=== PATIENT | male | born 1935 | race Caucasian/White ===

== ENCOUNTER 2018-12-31 13:53 | Inpatient (IN) ==
[2018-12-31 14:34] LABS: Basophils % 0.5 % (0.0-0.8); Eosinophils # 0.1 10*3/uL (0.0-0.87); Eosinophils % 1.9 % (0.00-10.9); Hematocrit 43.2 VOL% (42.0-52.0); Hemoglobin 14.8 GM/DL (14.0-18.0); Immature Granulocytes % 0.2 %; Immature Granulocytes Absolute 0.01 #; Lymphocytes # 1.6 10*3/uL (1.4-4.0); Lymphocytes % 25.6 % (21.2-54.2); Mean Corpuscular HGB Conc 34.3 GM/DL (32-36); Mean Corpuscular Volume 93.7 FL (87-102); Mean Platelet Volume 8.9 FL (9.6-12.0); Monocytes % 6.6 % (1.7-12.7); Neutrophils % 65.2 % (38.7-73.9); Platelet Count 232 T/CUMM (130-400); Red Blood Count 4.61 MC/CUMM (3.8-5.5); Red Cell Distribution Width 12.5 % (9.3-17.3); White Blood Count 6.4 T/CUMM (4-12)
[2018-12-31 15:00] LABS: Albumin 3.5 G/DL (3.4-5.0); Bilirubin,Total 0.6 MG/DL (0.2-1.0); Osmolality,Calculated 276.8 MOS/KG (273-304); Total Protein 8.3 G/DL (6.4-8.3)
[2018-12-31] MEDS ORDERED: ONDANSETRON 4 MG/2 ML VIAL IV PRN (16:22)
[2018-12-31] MEDS ORDERED: DEXTROSE 10% 250 ML BAG IV PRN (16:29)
[2018-12-31] MEDS ORDERED: GLUCAGON 1 MG VIAL IM PRN (16:29)
[2018-12-31] MEDS: INSULIN LISPRO 100 UNIT/ML SUBCUT SCH ×2 (18:10→21:30)
[2018-12-31] MEDS ORDERED: ZIPRASIDONE 20 MG/1 ML VIAL IM ONE (20:25)
[2018-12-31] MEDS: NICOTINE 21 MG/24 HR PATCH TRANSDERM SCH (21:28)
[2018-12-31] MEDS: DONEPEZIL 5 MG TABLET PO SCH (21:32)
[2018-12-31] MEDS: DULoxetine 20 MG CAPSULE PO SCH (21:32)
[2018-12-31] MEDS: ALBUTEROL/IPRATROPIUM 3 ML NEB RESP TX SCH (22:08)
[2019-01-01 05:27] LABS: Basophils % 0.5 % (0.0-0.8); Eosinophils # 0.2 10*3/uL (0.0-0.87); Eosinophils % 3.3 % (0.00-10.9); Hematocrit 39.8 VOL% (42.0-52.0); Hemoglobin 13.5 GM/DL (14.0-18.0); Immature Granulocytes % 0.3 %; Immature Granulocytes Absolute 0.02 #; Lymphocytes # 1.9 10*3/uL (1.4-4.0); Lymphocytes % 33.8 % (21.2-54.2); Mean Corpuscular HGB Conc 33.9 GM/DL (32-36); Mean Corpuscular Volume 94.5 FL (87-102); Mean Platelet Volume 9.3 FL (9.6-12.0); Monocytes % 7.8 % (1.7-12.7); Neutrophils % 54.3 % (38.7-73.9); Platelet Count 220 T/CUMM (130-400); Red Blood Count 4.21 MC/CUMM (3.8-5.5); Red Cell Distribution Width 12.5 % (9.3-17.3); White Blood Count 5.7 T/CUMM (4-12)
[2019-01-01 06:17] LABS: Calcium 9.1 MG/DL (8.5-10.1); Osmolality,Calculated 274.8 MOS/KG (273-304); Risk Ratio 4.19; Thyroid Stimulating Hormone 0.474 uIU/ml (0.358-3.74); VLDL CHOLESTEROL 37.8 MG/DL
[2019-01-01] MEDS: INSULIN LISPRO 100 UNIT/ML SUBCUT SCH ×4 (07:47→20:40)
[2019-01-01] MEDS: ALBUTEROL/IPRATROPIUM 3 ML NEB RESP TX SCH ×4 (07:58→20:44)
[2019-01-01] MEDS ORDERED: NICOTINE 21 MG/24 HR PATCH TRANSDERM SCH ×2 (09:00→20:26)
[2019-01-01] MEDS ORDERED: DEXTROSE 50% 25 GM/50 ML VIAL IV PRN (09:21)
[2019-01-01] MEDS ORDERED: GLUCAGON 1 MG VIAL IM PRN (09:21)
[2019-01-01] MEDS: ASPIRIN EC 81 MG TABLET PO SCH (09:25)
[2019-01-01] MEDS: PANTOPRAZOLE 40 MG TABLET PO SCH (09:25)
[2019-01-01] MEDS: MULTIVITAMIN (CENTRUM) TABLET PO SCH (09:25)
[2019-01-01] MEDS: NICOTINE 21 MG/24 HR PATCH TRANSDERM SCH (09:27)
[2019-01-01] MEDS: APIXABAN 5 MG TABLET PO SCH (20:38)
[2019-01-01] MEDS: DONEPEZIL 5 MG TABLET PO SCH (20:39)
[2019-01-01] MEDS: DULoxetine 20 MG CAPSULE PO SCH (20:41)
[2019-01-01] MEDS ORDERED: ATORVASTATIN 40 MG TABLET PO SCH (21:00)
[2019-01-02 05:41] LABS: Basophils % 0.4 % (0.0-0.8); Eosinophils # 0.2 10*3/uL (0.0-0.87); Eosinophils % 2.3 % (0.00-10.9); Hemoglobin 13.3 GM/DL (14.0-18.0); Immature Granulocytes % 0.3 %; Immature Granulocytes Absolute 0.02 #; Lymphocytes # 1.6 10*3/uL (1.4-4.0); Lymphocytes % 22.4 % (21.2-54.2); Mean Corpuscular HGB Conc 34.1 GM/DL (32-36); Mean Corpuscular Volume 94.7 FL (87-102); Mean Platelet Volume 9.5 FL (9.6-12.0); Monocytes % 9.2 % (1.7-12.7); Neutrophils % 65.4 % (38.7-73.9); Platelet Count 225 T/CUMM (130-400); Red Blood Count 4.12 MC/CUMM (3.8-5.5); Red Cell Distribution Width 12.5 % (9.3-17.3)
[2019-01-02 06:05] LABS: Calcium 9.2 MG/DL (8.5-10.1); Osmolality,Calculated 285.4 MOS/KG (273-304)
[2019-01-02] MEDS: ALBUTEROL/IPRATROPIUM 3 ML NEB RESP TX SCH ×2 (07:34→11:11)
[2019-01-02] MEDS: NICOTINE 21 MG/24 HR PATCH TRANSDERM SCH (08:49)
[2019-01-02] MEDS: INSULIN LISPRO 100 UNIT/ML SUBCUT SCH ×2 (08:49→11:11)
[2019-01-02] MEDS: ASPIRIN EC 81 MG TABLET PO SCH (08:50)
[2019-01-02] MEDS: MULTIVITAMIN (CENTRUM) TABLET PO SCH (08:50)
[2019-01-02] MEDS: PANTOPRAZOLE 40 MG TABLET PO SCH (08:50)
[2019-01-02] MEDS: APIXABAN 5 MG TABLET PO SCH (08:50)
[2019-01-02] MEDS ORDERED: POTASSIUM CHLORIDE 20 MEQ TABLET PO ONE (09:00)
[2019-01-02] MEDS ORDERED: COENZYME Q10 100 MG CAPSULE PO SCH (09:00)
[2019-01-02 13:27] VITALS: BP 132/79
== END 2019-01-02 12:15 | disposition home or self-care (01) | DRG 64 ==
LOC: N.ED 13:53 → N.5E 16:21
PROVIDERS: ADMIT Internal Medicine; ATTEND Internal Medicine

== ENCOUNTER 2019-05-20 10:37 | Inpatient (IN) ==
[2019-05-20] MEDS ORDERED: ACETAMINOPHEN 325 MG TABLET PO PRN (12:18)
[2019-05-20] MEDS ORDERED: ONDANSETRON 4 MG/2 ML VIAL IV PRN (12:18)
[2019-05-20 13:05] LABS: Basophils % 0.5 % (0.0-0.8); Eosinophils # 0.2 10*3/uL (0.0-0.87); Eosinophils % 2.6 % (0.00-10.9); Hematocrit 41.7 VOL% (42.0-52.0); Hemoglobin 14.8 GM/DL (14.0-18.0); Immature Granulocytes % 0.3 %; Immature Granulocytes Absolute 0.02 #; Lymphocytes # 2.1 10*3/uL (1.4-4.0); Lymphocytes % 28.2 % (21.2-54.2); Mean Corpuscular HGB Conc 35.5 GM/DL (32-36); Mean Corpuscular Volume 93.1 FL (87-102); Mean Platelet Volume 9.1 FL (9.6-12.0); Monocytes % 7.4 % (1.7-12.7); Platelet Count 254 T/CUMM (130-400); Red Blood Count 4.48 MC/CUMM (3.8-5.5); Red Cell Distribution Width 12.9 % (9.3-17.3); White Blood Count 7.4 T/CUMM (4-12)
[2019-05-20 13:31] LABS: Albumin 3.1 G/DL (3.4-5.0); Bilirubin,Total 0.4 MG/DL (0.2-1.0); Calcium 9.1 MG/DL (8.5-10.1); Osmolality,Calculated 277.7 MOS/KG (273-304); Total Protein 7.6 G/DL (6.4-8.3)
[2019-05-20] MEDS: SODIUM CHLORIDE 0.9% 1,000 ML IV SCH (14:58)
[2019-05-20] MEDS ORDERED: DONEPEZIL 5 MG TABLET PO SCH (21:00)
[2019-05-20] MEDS ORDERED: DULoxetine 20 MG CAPSULE PO SCH (21:00)
[2019-05-20] MEDS ORDERED: ATORVASTATIN 40 MG TABLET PO SCH (21:00)
[2019-05-20] MEDS: ALBUTEROL/IPRATROPIUM 3 ML NEB RESP TX SCH (21:40)
[2019-05-20] MEDS: oxyCODONE/ACETAMINOPHEN 5-325 MG TABLET PO SCH (22:15)
[2019-05-20] MEDS: DEXAMETHASONE 4 MG TABLET PO SCH (22:16)
[2019-05-20] MEDS: APIXABAN 5 MG TABLET PO SCH (22:16)
[2019-05-20] MEDS: metFORMIN 500 MG TABLET PO SCH (22:16)
[2019-05-20] MEDS: DOCUSATE SODIUM 100 MG CAPSULE PO SCH (22:18)
[2019-05-21 05:10] LABS: Basophils % 0.2 % (0.0-0.8); Eosinophils % 0.2 % (0.00-10.9); Hematocrit 38.2 VOL% (42.0-52.0); Hemoglobin 13.1 GM/DL (14.0-18.0); Immature Granulocytes % 0.3 %; Immature Granulocytes Absolute 0.02 #; Lymphocytes # 0.8 10*3/uL (1.4-4.0); Lymphocytes % 12.8 % (21.2-54.2); Mean Corpuscular HGB Conc 34.3 GM/DL (32-36); Mean Corpuscular Volume 93.6 FL (87-102); Mean Platelet Volume 9.7 FL (9.6-12.0); Monocytes % 2.1 % (1.7-12.7); Neutrophils % 84.4 % (38.7-73.9); Platelet Count 226 T/CUMM (130-400); Red Blood Count 4.08 MC/CUMM (3.8-5.5); Red Cell Distribution Width 12.8 % (9.3-17.3); White Blood Count 6.3 T/CUMM (4-12)
[2019-05-21 05:38] LABS: Calcium 8.5 MG/DL (8.5-10.1); Osmolality,Calculated 280.8 MOS/KG (273-304)
[2019-05-21] MEDS: ALBUTEROL/IPRATROPIUM 3 ML NEB RESP TX SCH ×2 (08:07→11:59)
[2019-05-21] MEDS ORDERED: MULTIVITAMIN (CENTRUM) TABLET PO SCH (09:00)
[2019-05-21] MEDS ORDERED: PANTOPRAZOLE 40 MG TABLET PO SCH (09:00)
[2019-05-21] MEDS ORDERED: ASPIRIN EC 81 MG TABLET PO SCH (09:00)
[2019-05-21] MEDS: SODIUM CHLORIDE 0.9% 1,000 ML IV SCH (09:47)
[2019-05-21] MEDS: DEXAMETHASONE 4 MG TABLET PO SCH ×2 (09:48→14:36)
[2019-05-21] MEDS: metFORMIN 500 MG TABLET PO SCH (09:49)
[2019-05-21] MEDS: oxyCODONE/ACETAMINOPHEN 5-325 MG TABLET PO SCH (09:49)
[2019-05-21] MEDS: DOCUSATE SODIUM 100 MG CAPSULE PO SCH (09:50)
[2019-05-21] MEDS: APIXABAN 5 MG TABLET PO SCH (09:53)
[2019-05-21 11:07] VITALS: BP 157/84
== END 2019-05-21 16:08 | disposition hospice, home (50) | DRG 542 ==
LOC: N.5E 10:55
PROVIDERS: ADMIT Family Medicine; ATTEND Family Medicine